=== PATIENT | female | born 2000 | race Hispanic/Latino ===

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

== ENCOUNTER 2019-04-26 14:07 | Outpatient (CLI) | payer MEDICAID, OTHER ==
--- NOTE | 2019-04-26 14:52 | ULT ---
LIMITED RIGHT BREAST ULTRASOUND: DATE: 04/26/2019. PROVIDED CLINICAL HISTORY: Right breast mass. FINDINGS: Limited sonographic interrogation was performed of the right breast at the 9 o'clock position in the region of previously described mass. Again demonstrated is an oval, wider than tall, circumscribed s moothly marginated mass measuring approximately 4.9 x 3 x 5.6 cm. This demonstrates a similar appear ance to the prior examination with minimal increase in size. The sonographic findings of this are ag ain compatible with fibroadenoma. IMPRESSION: Sonographic findings typical for fibroadenoma. If there is persistent clinical concern, surgical con sultation regarding excision biopsy is recommended. POS: [facility]
--- NOTE | 2019-04-26 15:47 | ULT ---
TRANSABDOMINAL AND TRANSVAGINAL PELVIC ULTRASOUND: INDICATION: History of pelvic pain. TECHNIQUE: Calle scale, color Doppler, with spectral Doppler images were obtained of the pelvis via a transabdomi nal transvaginal approach. FINDINGS: The uterus measures 7.5 x 4.8 x 3.5 cm. The endometrial stripe measures 7 mm. The right ovary measures 3.5 x 2.5 x 2.7 cm. There is normal flow to the right ovary. There is a 2. 5 cm cyst within the right ovary. The left ovary measures 2.9 x 2.7 x 2.3 cm. There is a 2.5 x 2 x 1.8 cm hypoechoic lesion within the left adnexa suspicious for a mildly complex cyst. There is normal flow to both ovaries. No free fluid is evident. IMPRESSION: Suspected bilateral ovarian cysts. The largest suspected cystic abnormality in the left adnexa is no t well delineated. This may reflect a mildly complex hemorrhagic cyst. As a conservative measure, a followup ultrasound in 6-8 weeks is recommended to document resolution POS: [facility]
== END 2019-04-26 14:08 | disposition home or self-care (01) ==
LOC: BICULT 14:07
PROVIDERS: ATTEND Family Medicine
DX: N63.10 Unspecified lump in the right breast, unspecified quadrant (principal); R10.2 Pelvic and perineal pain
CPT/HCPCS: 76856